=== PATIENT | female | born 1945 | race Caucasian/White ===

== ENCOUNTER → 2016-07-19 | Outpatient (CLI) | payer MEDICARE, OTHER | LOC: GMA 20:19 | PROVIDERS: ATTEND Nurse Practitioner Acute Care | DX: N39.0 Urinary tract infection, site not specified (principal) ==

== ENCOUNTER → 2016-09-15 | Outpatient (CLI) | payer MEDICARE, OTHER ==
--- NOTE | 2016-09-15 13:25 | US ---
History: Palpable nodule left breast 3-4 o'clock DATE OF SERVICE: 09/15/2016 Services provided: Full field digital diagnostic bilateral mammography. CAD, the images were reviewed with R2 computer aided detection. Targeted Limited left breast sonography. FINDINGS: Scattered glandular parenchymal pattern is near completely fatty involuted and compared with 2013 exam. No dominant mass, architectural distortion or clustered microcalcification. Directed ultrasound evaluation corresponding to the region of palpable change left breast demonstrates normal fibroglandular tissue. No sonographically suspicious finding. IMPRESSION: Benign exam. Region of clinical concern corresponds to a ridge of normal fibroglandular tissue. Recommendation: Routine annual mammography. Findings and recommendations were communicated to the patient by the technologist. BIRAD CATEGORY: 2 BENIGN Electronically signed by: Gilda Mo MD 09/15/2016 1:24 PM CDT
== END | disposition home or self-care (01) ==
LOC: MAMMO 12:21
PROVIDERS: ATTEND Nurse Practitioner Acute Care
DX: N63 Unspecified lump in breast (principal)

== ENCOUNTER 2016-10-23 09:33 | Emergency (ER) | payer MEDICARE, OTHER ==
--- NOTE | 2016-10-23 10:00 | ED.PDOC ---
History of Present Illness - General Chief Complaint: Syncope/Near Syncope Stated Complaint: passed out @ home Time Seen by Provider: 10/23/16 09:48 Source: patient, RN notes reviewed, Vital Signs reviewed, EMS Exam Limitations: no limitations - History of Present Illness Initial Comments: Patient reports that she got up this morning with a cramp in her foot. She stood up to stretch it out and she got a cramp in her inner L thigh. She bent down and rubbed firmly down her leg. She suddenly got dizzy & nauseated. Sat down on the floor and then passed out. Boyfriend reports she was sitting on the side of the bed when she passed out and fell. She was out for 3-4 minutes. When EMS arrived she was still on the floor and they had to pick her up and place her on the stretcher. She was still nauseated and was given Zofran. She was also noted to be hypotensive and bradycardic. BP improved to 104/62 after a 200cc NS bolus. She reports she currently feels fine. She does have a history of a. fib and was on flecinide but when she saw her gas truck driver in June of this year she was bradycardic to 40 and in a. flutter. Flecinide was stopped and no new medication started. She is on Coumadin. Timing/Duration: momentarily Improving Factors: nothing Worsening Factors: nothing Associated Symptoms: nausea/vomiting, syncope Allergies/Adverse Reactions: Allergies Cephalexin [From Keflex] Allergy (Severe, Verified 02/13/13 07:55) Codeine Allergy (Severe, Verified 02/13/13 07:55) Hydrocodone Allergy (Severe, Verified 02/13/13 07:55) Meperidine [From Demerol HCl] Allergy (Severe, Verified 02/13/13 07:55) Morphine Allergy (Severe, Verified 02/13/13 07:55) Penicillins Allergy (Severe, Verified 02/13/13 07:55) Sulfa Drugs Allergy (Severe, Verified 02/13/13 07:55) Home Medications: Ambulatory Orders Diazepam 5 mg PO DAILY 11/12/12 Enoxaparin Sodium [Lovenox] 100 mg SUBCU DAILY 11/12/12 Sertraline HCl [Zoloft] 100 mg PO DAILY 11/12/12 Simvastatin [Zocor] 40 mg PO HS 11/12/12 Warfarin Sodium 3 mg PO DAILY 11/12/12 Flecainide [Tambocor] 25 mg PO BID 02/12/13 Probiotic Product [Probiotic] 1 cap PO DAILY 02/12/13 Acetaminophen [Tylenol] 650 mg PO .Q4 PRN #0 tab 02/17/13 Enoxaparin Sodium [Lovenox] 100 mg SUBCU BID #0 syg 02/17/13 Tramadol HCl [Ultram] 50 mg PO .Q6 PRN #0 tab 02/17/13 Zolpidem Tartrate [Ambien] 5 mg PO HS PRN #0 tab 02/17/13 fentaNYL PATCH 25 MCG/HR [Duragesic] 25 mcg TD .Q72 #0 patch 02/17/13 Review of Systems - Review of Systems Constitutional: States: no symptoms reported. Denies: chills, diaphoresis, fever, malaise Respiratory: States: no symptoms reported. Denies: short of breath Cardiology: States: syncope. Denies: chest pain, edema, palpitations Gastrointestinal/Abdominal: States: nausea. Denies: abdominal pain, constipation, diarrhea, vomiting Musculoskeletal: States: muscle pain - L foot and thigh Skin: States: no symptoms reported Neurological: States: other - dizzy. Denies: numbness, paresthesia, tingling, weakness Hematologic/Lymphatic: States: easy bleeding - due to Coumadin All other Systems: No Change from Baseline Past Medical History (General) - Patient Medical History Hx Seizures: No Hx Stroke: No Hx Asthma: No Hx of COPD: No Hx Cardiac Disorders: Yes - A FIB Hx Congestive Heart Failure: No Hx Pacemaker: No Hx Hypertension: Yes Hx Diabetes: No Hx MRSA: No - Social History Hx Alcohol Use: No Hx Substance Use: No Hx Physical Abuse: No Hx Emotional Abuse: No Family Medical History - Family History Mother Family History: Unknown Living Status: Physical Exam - Physical Exam General Appearance: Alert, Comfortable, No apparent distress, Well Developed, Well Groomed, Well Hydrated, Well Nourished Eye Exam: bilateral normal Ears, Nose, Throat: hearing grossly normal, normal ENT inspection, normal pharynx Neck: non-tender, full range of motion, supple, normal inspection Respiratory: chest non-tender, lungs clear, normal breath sounds, no respiratory distress, no accessory muscle use Cardiovascular/Chest: no edema, no gallop, no JVD, no murmur, bradycardia Peripheral Pulses: dorsalis pedis,right: 2+, dorsalis pedis,left: 2+ Gastrointestinal/Abdominal: normal bowel sounds, non tender, soft, no organomegaly, no pulsatile mass Extremity: normal range of motion, no pedal edema, other - L medial, distal thigh is tender to palpation Neurologic: cloth reeler II-XII nml as tested, no motor/sensory deficits, alert, normal mood/affect, oriented x 3 Skin Exam: normal color, warm/dry Progress - Progress Progress: 10/23/16 10:58 Patient with bradycardia & hypotension, KCl of 3.0. O/W neg workup. Paged Principal Architect, Dr. Faheem Pablo @ [facility]. Awaiting call back from Dr. Post. 10/23/16 11:[address] Post. He does not feel her low heart rate was the cause of her syncopal episode. Feels it was vagal. Recommended a Holter Monitor and follow up with Dr. Pascual. 10/23/16 13:36 Potassium done. Will d/c home with follow up with PCP & Principal Architect - Results/Orders Results/Orders: Laboratory Tests 10/23/16 10/23/16 10/23/16 10:02 10:02 10:02 WBC 5.9 RBC 4.12 L Hgb 12.7 Hct 37.6 MCV 91.3 MCH 30.8 MCHC 33.6 RDW 13.1 Plt Count 196 MPV 7.2 L Absolute Neuts (auto) 3.20 Absolute Lymphs (auto) 1.60 Absolute Monos (auto) 0.80 Absolute Eos (auto) 0.30 Absolute Basos (auto) 0.10 Neutrophils % 53.6 Lymphocytes % 27.6 Monocytes % 13.1 H Eosinophils % 4.7 Basophils % 1.0 PT INR D-Dimer, Quantitative < 200 Sodium 138 Potassium 3.0 L Chloride 102 Carbon Dioxide 25 Anion Gap 14.0 BUN 22 H Creatinine 0.65 BUN/Creatinine Ratio 33.8 H Random Glucose 148 H Serum Osmolality 281.8 Calcium 8.6 Total Bilirubin 0.3 AST 22 ALT 18 Alkaline Phosphatase 36 L Creatine Kinase 101 CK-MB (CK-2) 3.8 CK-MB (CK-2) % Not Reportable Troponin I < 0.02 B-Natriuretic Peptide 9.4 Serum Total Protein 6.2 L Albumin 3.6 Globulin 2.6 Albumin/Globulin Ratio 1.4 10/23/16 10:10 WBC RBC Hgb Hct MCV MCH MCHC RDW Plt Count MPV Absolute Neuts (auto) Absolute Lymphs (auto) Absolute Monos (auto) Absolute Eos (auto) Absolute Basos (auto) Neutrophils % Lymphocytes % Monocytes % Eosinophils % Basophils % PT 24.7 H* INR 2.200 D-Dimer, Quantitative Sodium Potassium Chloride Carbon Dioxide Anion Gap BUN Creatinine BUN/Creatinine Ratio Random Glucose Serum Osmolality Calcium Total Bilirubin AST ALT Alkaline Phosphatase Creatine Kinase CK-MB (CK-2) CK-MB (CK-2) % Troponin I B-Natriuretic Peptide Serum Total Protein Albumin Globulin Albumin/Globulin Ratio - EKG/XRAY/CT EKG: Amado, Sinus, no ST T wave changes Comments: Rate 46 XRAY: chest - Normal per Rad CT Ordered: Yes - Head: no acute intracranial process per Rad Departure - Departure Clinical Impression: Vasovagal syncope, Sinus bradycardia on ECG Time of Disposition: 13:37 Disposition: Discharge to Home or Self Care Condition: Good Instructions: DI for Syncope in Adults (Fainting), DI for Bradycardia Diet: resume usual diet Activity: increase activity as tolerated Referrals: Piotr Solis MD [Primary Care Provider] - 1-2 Days Home Medications: Ambulatory Orders Diazepam 5 mg PO DAILY 11/12/12 Enoxaparin Sodium [Lovenox] 100 mg SUBCU DAILY 11/12/12 Sertraline HCl [Zoloft] 100 mg PO DAILY 11/12/12 Simvastatin [Zocor] 40 mg PO HS 11/12/12 Warfarin Sodium 3 mg PO DAILY 11/12/12 Flecainide [Tambocor] 25 mg PO BID 02/12/13 Probiotic Product [Probiotic] 1 cap PO DAILY 02/12/13 Acetaminophen [Tylenol] 650 mg PO .Q4 PRN #0 tab 02/17/13 Enoxaparin Sodium [Lovenox] 100 mg SUBCU BID #0 syg 02/17/13 Tramadol HCl [Ultram] 50 mg PO .Q6 PRN #0 tab 02/17/13 Zolpidem Tartrate [Ambien] 5 mg PO HS PRN #0 tab 02/17/13 fentaNYL PATCH 25 MCG/HR [Duragesic] 25 mcg TD .Q72 #0 patch 02/17/13 Additional Instructions: Hold HCTZ tomorrow and then just take 1/2 tab Follow up with Dr. Solis tomorrow to arrange for Holter Monitor Call Dr. Pablo in AM and arrange cardiology follow up for low heart rate.
[2016-10-23] MEDS ORDERED: KCL 40 MEQ/WATER FOR INJECTION 40 MEQ in PREMIX BAG 1 BAG IVPB ONE (10:11)
[2016-10-23] MEDS ORDERED: KCL 40 MEQ/WATER FOR INJECTION 100 ML IVPB ONE (10:40)
--- NOTE | 2016-10-23 10:41 | RAD ---
PROCEDURE: XR CHEST 1 VIEW HISTORY: Syncopal episode/bradycardia COMPARISON: 09/20/2008 TECHNIQUE: Single projection of the chest was done. FINDINGS: The lung marcus are well inflated . There are no discrete airspace infiltrates, pneumothoraces or pleural effusions. The pulmonary vascularity is normal. There is presence of a coronary artery stent. The cardiomediastinal silhouette is otherwise stable. IMPRESSION: There is no acute pleural-parenchymal process seen in the imaged lung marcus. Location of Interpretation: Teleradiology Electronically signed by: Bradley Sanchez MD 10/23/2016 10:40 AM CDT Workstation: [id number]
--- NOTE | 2016-10-23 10:49 | CT ---
PROCEDURE: Head HISTORY: syncopal episode Indication: Same as above Comparison: None Technique: CT of the head was done without intravenous contrast was done in the axial plane only This exam was performed according to our departmental dose-optimization program, which includes automated exposure control, adjustment of the mA and/or KV according to the patient's size and/or use of iterative reconstruction technique. FINDINGS: There is no intracranial hemorrhage, midline shift mass effect or acute focal infarct. There is prominence of the sylvian fissures and the cortical sulci reflecting age related volume loss and most pronounced in the bilateral frontal lobes. Intracranial vascular calcifications are seen. If clinical concern exists regarding an acute ischemic/vascular pathology being responsible for patient's symptomatology, an MRI of the brain is more sensitive than the current study, in ruling out such a possibility. There is good holguin/white matter differentiation. The ventricular system is normal. The mastoid air cells are unremarkable . The paranasal sinuses show changes of underlying chronic sinusitis . There is no visualization of acute fractures involving the calvarium or the skull base. IMPRESSION: There is no acute intracranial abnormality. Age related and chronic involutional changes are seen. Electronically signed by: Bradley Sanchez MD 10/23/2016 10:48 AM CDT Workstation: [id number]
[2016-10-23] MEDS ORDERED: SODIUM CHLORIDE 0.9% 1000ML 1,000 ML IVS ONE (11:23)
[2016-10-23 14:48] VITALS: BP 141/54; TEMP 96.5; O2SAT 94
== END 2016-10-23 14:00 | disposition home or self-care (01) ==
LOC: ER 09:33
DX: R55 Syncope and collapse (principal); R00.1 Bradycardia, unspecified; R11.0 Nausea; I95.9 Hypotension, unspecified; I48.91 Unspecified atrial fibrillation; I10 Essential (primary) hypertension; Z79.899 Other long term (current) drug therapy; Z79.01 Long term (current) use of anticoagulants; Z88.2 Allergy status to sulfonamides; Z88.0 Allergy status to penicillin; Z88.5 Allergy status to narcotic agent; Z88.1 Allergy status to other antibiotic agents
CPT/HCPCS: 36415; 70450; 71010; 80053; 82550; 82553; 83880; 84484; 85025; 85379; 85610; 93005; J3480; J7030

== ENCOUNTER 2016-12-09 17:24 | Emergency (ER) | payer MEDICARE, OTHER ==
[2016-12-09 17:49] VITALS: TEMP 98.3
--- NOTE | 2016-12-09 18:04 | ED.PDOC ---
History of Present Illness - General Chief Complaint: Abdominal Pain Stated Complaint: lower abd pain, left flank pain Time Seen by Provider: 12/09/16 18:04 Source: patient Exam Limitations: no limitations - History of Present Illness Initial Comments: Lolita Gregory 71 y/o female stated that slipped out of her ladder at home fell on her buttocks then had dull ache on her back and lower abdomen and 3 days later not getting better went to see her primary md was written antibiotics for possible diverticulitis and not getting better despite taking antibiotics also had watery diarrhea for 2 days accompanied by abdominal cramps.No blood in stool,no hematuria,no nausea vomiting,no fever able to eat but felt nauseous Timing/Duration: getting worse, intermittent, other - 6 days ago Severity: moderate Improving Factors: nothing Worsening Factors: nothing Associated Symptoms: other - see hpi Allergies/Adverse Reactions: Allergies Cephalexin [From Keflex] Allergy (Severe, Verified 02/13/13 07:55) Codeine Allergy (Severe, Verified 02/13/13 07:55) Hydrocodone Allergy (Severe, Verified 02/13/13 07:55) Meperidine [From Demerol HCl] Allergy (Severe, Verified 02/13/13 07:55) Morphine Allergy (Severe, Verified 02/13/13 07:55) Penicillins Allergy (Severe, Verified 02/13/13 07:55) Sulfa Drugs Allergy (Severe, Verified 02/13/13 07:55) Home Medications: Ambulatory Orders Diazepam 5 mg PO DAILY 11/12/12 Enoxaparin Sodium [Lovenox] 100 mg SUBCU DAILY 11/12/12 Sertraline HCl [Zoloft] 100 mg PO DAILY 11/12/12 Simvastatin [Zocor] 40 mg PO HS 11/12/12 Warfarin Sodium 3 mg PO DAILY 11/12/12 Flecainide [Tambocor] 25 mg PO BID 02/12/13 Probiotic Product [Probiotic] 1 cap PO DAILY 02/12/13 Acetaminophen [Tylenol] 650 mg PO .Q4 PRN #0 tab 02/17/13 Enoxaparin Sodium [Lovenox] 100 mg SUBCU BID #0 syg 02/17/13 Tramadol HCl [Ultram] 50 mg PO .Q6 PRN #0 tab 02/17/13 Zolpidem Tartrate [Ambien] 5 mg PO HS PRN #0 tab 02/17/13 fentaNYL PATCH 25 MCG/HR [Duragesic] 25 mcg TD .Q72 #0 patch 02/17/13 Review of Systems - Review of Systems Constitutional: States: no symptoms reported EENTM: States: no symptoms reported Respiratory: States: no symptoms reported Cardiology: States: no symptoms reported Gastrointestinal/Abdominal: States: see HPI Genitourinary: States: no symptoms reported Musculoskeletal: States: no symptoms reported Past Medical History (General) - Patient Medical History Hx Seizures: No Hx Stroke: No Hx Asthma: No Hx of COPD: No Hx Cardiac Disorders: Yes - A FIB Hx Congestive Heart Failure: No Hx Pacemaker: No Hx Hypertension: Yes Hx Diabetes: No Hx MRSA: No Surgical History: cholecystectomy, Hysterectomy, other - right knee,cataract - Vaccination History Hx Influenza Vaccination: Yes - 2016 Hx Pneumococcal Vaccination: Yes - Social History Hx Tobacco Use: No Hx Alcohol Use: No Hx Substance Use: No Hx Physical Abuse: No Hx Emotional Abuse: No Family Medical History - Family History Mother Family History: Unknown Living Status: Physical Exam - Physical Exam General Appearance: Alert, Anxious, No apparent distress Eye Exam: bilateral normal Ears, Nose, Throat: hearing grossly normal, normal ENT inspection, normal pharynx Neck: non-tender, full range of motion, supple Respiratory: chest non-tender, lungs clear Cardiovascular/Chest: normal peripheral pulses, regular rate, rhythm, no murmur Peripheral Pulses: radial,right: 1+, radial,left: 1+ Gastrointestinal/Abdominal: normal bowel sounds, soft, tenderness - lower abdomen no peritoneal signs Back Exam: normal inspection, no vertebral tenderness, CVA tenderness (L) Extremity: normal range of motion, non-tender, no pedal edema, no calf tenderness Neurologic: alert, normal mood/affect, oriented x 3 Progress - Progress Progress: 12/09/16 18:29 Vital Signs - 8 hr 12/09/16 17:30 Temperature 98.3 F Pulse Rate [ 58 L RIGHT BRACHIAL] Respiratory 20 Rate Blood Pressure 151/79 [RIGHT BRACHIAL ] O2 Sat by Pulse 94 L Oximetry 12/09/16 20:12 Laboratory Tests 12/09/16 12/09/16 12/09/16 18:21 18:21 18:21 WBC 5.9 RBC 3.92 L Hgb 12.1 Hct 35.0 L MCV 89.3 MCH 30.8 MCHC 34.6 RDW 12.7 Plt Count 209 MPV 7.1 L Absolute Neuts (auto) 3.20 Absolute Lymphs (auto) 1.40 Absolute Monos (auto) 0.80 Absolute Eos (auto) 0.30 Absolute Basos (auto) 0.10 Neutrophils % 55.4 Lymphocytes % 24.2 Monocytes % 14.0 H Eosinophils % 5.3 H Basophils % 1.1 PT 29.2 H* INR 2.610 Sodium 125 L Potassium 3.4 L Chloride 90 L Carbon Dioxide 25 Anion Gap 13.4 BUN 16 Creatinine 0.66 BUN/Creatinine Ratio 24.2 H Random Glucose 103 Serum Osmolality 252.9 L* Calcium 8.6 Total Bilirubin 1.0 AST 26 ALT 18 Alkaline Phosphatase 49 Serum Total Protein 6.5 Albumin 4.0 Globulin 2.5 Albumin/Globulin Ratio 1.6 Urine Color Urine Appearance Urine pH Ur Specific [place] Urine Protein Urine Glucose (UA) Urine Ketones Urine Blood Urine Nitrite Urine Bilirubin Urine Urobilinogen Ur Leukocyte Esterase Urine RBC Urine WBC Ur Epithelial Cells Urine Bacteria Urine Mucus 12/09/16 18:52 WBC RBC Hgb Hct MCV MCH MCHC RDW Plt Count MPV Absolute Neuts (auto) Absolute Lymphs (auto) Absolute Monos (auto) Absolute Eos (auto) Absolute Basos (auto) Neutrophils % Lymphocytes % Monocytes % Eosinophils % Basophils % PT INR Sodium Potassium Chloride Carbon Dioxide Anion Gap BUN Creatinine BUN/Creatinine Ratio Random Glucose Serum Osmolality Calcium Total Bilirubin AST ALT Alkaline Phosphatase Serum Total Protein Albumin Globulin Albumin/Globulin Ratio Urine Color Yellow Urine Appearance Clear Urine pH 6.0 Ur Specific [place] 1.020 Urine Protein Negative Urine Glucose (UA) Negative Urine Ketones Negative Urine Blood Negative Urine Nitrite Negative Urine Bilirubin Negative Urine Urobilinogen 0.2 Ur Leukocyte Esterase Trace H Urine RBC 0-1 Urine WBC 3-5 H Ur Epithelial Cells 3-5 Urine Bacteria Rare Urine Mucus Trace - EKG/XRAY/CT CT Ordered: Yes - abdomen/pelvis: L1 compression fracture,no other acute abnormalities/radiol Departure - Departure Clinical Impression: Chronic hyponatremia Abdominal pain Qualifiers: Abdominal location: lower abdomen, unspecified Qualified Code(s): R10.30 - Lower abdominal pain, unspecified Compression fracture of lumbar vertebra Qualifiers: Encounter type: initial encounter Lumbar vertebra fracture level: L1 Fracture type: closed Qualified Code(s): S32.010A - Wedge compression fracture of first lumbar vertebra, initial encounter for closed fracture Fall on and from ladder Qualifiers: Encounter type: initial encounter Qualified Code(s): W11.XXXA - Fall on and from ladder, initial encounter Time of Disposition: 22:02 Disposition: Discharge to Home or Self Care Condition: Fair Departure Forms: ED Discharge - Pt. Copy, Patient Portal Self Enrollment Instructions: DI for Abdominal Pain-Adult, DI for Vertebral Fracture, Vertebral Compression Fracture Referrals: Piotr Solis MD [Primary Care Provider] - 1-2 Weeks Home Medications: Ambulatory Orders Diazepam 5 mg PO DAILY 11/12/12 Enoxaparin Sodium [Lovenox] 100 mg SUBCU DAILY 11/12/12 Sertraline HCl [Zoloft] 100 mg PO DAILY 11/12/12 Simvastatin [Zocor] 40 mg PO HS 11/12/12 Warfarin Sodium 3 mg PO DAILY 11/12/12 Flecainide [Tambocor] 25 mg PO BID 02/12/13 Probiotic Product [Probiotic] 1 cap PO DAILY 02/12/13 Acetaminophen [Tylenol] 650 mg PO .Q4 PRN #0 tab 02/17/13 Enoxaparin Sodium [Lovenox] 100 mg SUBCU BID #0 syg 02/17/13 Tramadol HCl [Ultram] 50 mg PO .Q6 PRN #0 tab 02/17/13 Zolpidem Tartrate [Ambien] 5 mg PO HS PRN #0 tab 02/17/13 fentaNYL PATCH 25 MCG/HR [Duragesic] 25 mcg TD .Q72 #0 patch 02/17/13 Additional Instructions: Ambulate with walker as needed,Need to wear back brace in AM when moving around, Follow up with primary md 12/12/2016 call for appointment Continue with all home meds
[2016-12-09] MEDS ORDERED: SODIUM CHLORIDE 0.9% 500ML 500 ML IVS ONE (18:05)
[2016-12-09 18:41] VITALS: O2SAT 97
--- NOTE | 2016-12-09 19:14 | RAD ---
EXAM DESCRIPTION: Lumbar Spine 3 Views CLINICAL HISTORY: 71 years ,Female pain COMPARISON: None. TECHNIQUE: FINDINGS: There is straightening of the normal lordosis. Narrowing of the L3-4 L4-5 and L5-S1 disc interspaces. There is moderate compression at L1 which is age indeterminate but may be acute. Consider further evaluation with CT. IMPRESSION: Moderate compression at L1 which is age indeterminant. Acute fracture is not excluded. Multilevel degenerative change Electronically signed by: Miroslava Chisholm 12/09/2016 7:13 PM CDT
--- NOTE | 2016-12-09 19:16 | RAD ---
EXAM DESCRIPTION: Pelvis,2 or More Views CLINICAL HISTORY: 71 years Female pain COMPARISON: None. TECHNIQUE two views of the pelvis FINDINGS: No acute fractures or dislocations are identified. No osseous destructive lesions. There are degenerative changes in the lumbar spine. The SI joints and the symphysis appear intact. Proximal femora appear intact. No hip effusions are noted. IMPRESSION: No acute fracture is identified. CT or MRI could be obtained to better evaluate the hips if there is continued clinical concern. Electronically signed by: Miroslava Chisholm 12/09/2016 7:14 PM CDT
--- NOTE | 2016-12-09 21:26 | CT ---
EXAM DESCRIPTION: Abdomen/Pelvis w/Contrast CLINICAL HISTORY: 71 years Female pain COMPARISON: 02/07/2014 TECHNIQUE: Contiguous axial images obtained through the abdomen and pelvis following IV contrast. Reformatted images obtained. This exam was performed according to our department optimization program which includes automated exposure control, adjustment of the mA and/or kv according to patient size and/or use of iterative reconstruction technique. FINDINGS: Nodular focus in the right lung base which appears to be calcified on the coronal images. Liver appears unremarkable. Multiple low-attenuation foci in the spleen which appears stable as compared to the previous study. The pancreas is unremarkable. No adrenal masses. Nonobstructing renal calculus on the left. No evidence of delayed nephrogram or obstructive uropathy. The gallbladder is surgically absent. Small ventral hernia containing fat. No aneurysmal dilatation of the aorta. Unremarkable appendix. No bowel obstruction. There is diverticulosis without evidence of diverticulitis. There is moderate compression at L1 which is new as compared to the previous study. The fracture is age indeterminant but suspect chronic or subacute. No significant free fluid noted. IMPRESSION: Low-attenuation foci in the spleen which are stable as compared to the prior examination. Moderate compression at L1 which is age indeterminate. Suspect subacute or chronic injury Diverticulosis without evidence of diverticulitis. Electronically signed by: Miroslava Chisholm 12/09/2016 9:25 PM CDT
[2016-12-09 22:16] VITALS: BP 160/81
== END 2016-12-09 22:17 | disposition home or self-care (01) ==
LOC: ER 17:24
DX: R10.30 Lower abdominal pain, unspecified (principal); S32.010A Wedge compression fracture of first lumbar vertebra, initial encounter for closed fracture; E87.1 Hypo-osmolality and hyponatremia; I48.91 Unspecified atrial fibrillation; I10 Essential (primary) hypertension; Z88.6 Allergy status to analgesic agent; Z88.0 Allergy status to penicillin; Z88.2 Allergy status to sulfonamides; Z79.01 Long term (current) use of anticoagulants; Z79.899 Other long term (current) drug therapy; Z88.8 Allergy status to other drugs, medicaments and biological substances; W11.XXXA Fall on and from ladder, initial encounter; Y92.009 Unspecified place in unspecified non-institutional (private) residence as the place of occurrence of the external cause
CPT/HCPCS: 36415; 72100; 72190; 74177; 80053; 81001; 85025; 85610; 87324; 87449; J7040

== ENCOUNTER → 2017-04-04 | Outpatient (CLI) | payer MEDICARE, OTHER | END | disposition home or self-care (01) | LOC: GMA 20:15 | PROVIDERS: ATTEND Nurse Practitioner Family | DX: R31.21 Asymptomatic microscopic hematuria (principal) ==

== ENCOUNTER 2017-06-26 10:45 | Emergency (ER) | payer MEDICARE, OTHER ==
[2017-06-26 11:03] VITALS: TEMP 98.3
--- NOTE | 2017-06-26 11:13 | ED.PDOC ---
History of Present Illness - General Chief Complaint: Cardiovascular Problem Stated Complaint: arrythmia, "faintness" Time Seen by Provider: 06/26/17 11:07 Source: patient Exam Limitations: no limitations - History of Present Illness Initial Comments: Lolita Gregory 72 y/o female with history of A.fib on flecainide and coreg stated feels heart was "fluttering" and jaws felt weird as well as feeling of passing out satated was at home not doing any exertional activities.Denies chest pains ,N/V,SOB.Russian History Professor did not recommend defibrillation/cardiac ablation for her a.fib.Stated has jaw pains when her a.fib is acting up. Timing/Duration: 1-3 hours Severity: moderate Location: other - jaw Activities at Onset: rest Prior Chest Pain/Cardiac Workup: other - see hpi Worsening Factors: rest Nitro Today/Relief: no nitro taken today Aspirin Treatment Today: no aspirin today Associated Symptoms: other - see hpi Allergies/Adverse Reactions: Allergies Cephalexin [From Keflex] Allergy (Severe, Verified 02/13/13 07:55) Codeine Allergy (Severe, Verified 02/13/13 07:55) Hydrocodone Allergy (Severe, Verified 02/13/13 07:55) Meperidine [From Demerol HCl] Allergy (Severe, Verified 02/13/13 07:55) Morphine Allergy (Severe, Verified 02/13/13 07:55) Penicillins Allergy (Severe, Verified 02/13/13 07:55) Sulfa Drugs Allergy (Severe, Verified 02/13/13 07:55) Home Medications: Ambulatory Orders Diazepam 5 mg PO DAILY 11/12/12 Enoxaparin Sodium [Lovenox] 100 mg SUBCU DAILY 11/12/12 Sertraline HCl [Zoloft] 100 mg PO DAILY 11/12/12 Simvastatin [Zocor] 40 mg PO HS 11/12/12 Warfarin Sodium 3 mg PO DAILY 11/12/12 Flecainide [Tambocor] 25 mg PO BID 02/12/13 Probiotic Product [Probiotic] 1 cap PO DAILY 02/12/13 Acetaminophen [Tylenol] 650 mg PO .Q4 PRN #0 tab 02/17/13 Enoxaparin Sodium [Lovenox] 100 mg SUBCU BID #0 syg 02/17/13 Tramadol HCl [Ultram] 50 mg PO .Q6 PRN #0 tab 02/17/13 Zolpidem Tartrate [Ambien] 5 mg PO HS PRN #0 tab 02/17/13 fentaNYL PATCH 25 MCG/HR [Duragesic] 25 mcg TD .Q72 #0 patch 02/17/13 Review of Systems - Review of Systems Constitutional: States: no symptoms reported EENTM: States: no symptoms reported Respiratory: States: no symptoms reported Cardiology: States: see HPI Gastrointestinal/Abdominal: States: no symptoms reported Genitourinary: States: no symptoms reported All other Systems: Reviewed and Negative, No Change from Baseline Past Medical History (General) - Patient Medical History Hx Seizures: No Hx Stroke: No Hx Asthma: No Hx of COPD: No Hx Cardiac Disorders: Yes - A FIB Hx Congestive Heart Failure: No Hx Pacemaker: No Hx Hypertension: Yes Hx Diabetes: No Hx MRSA: No Surgical History: cholecystectomy, other - kne right,hysterectomy - Vaccination History Hx Influenza Vaccination: Yes - 2015 Hx Pneumococcal Vaccination: Yes - Social History Hx Tobacco Use: No Hx Alcohol Use: No Hx Substance Use: No Hx Physical Abuse: No Hx Emotional Abuse: No Family Medical History - Family History Mother Family History: Unknown Living Status: Physical Exam - Physical Exam General Appearance: Alert, Comfortable, No apparent distress Eyes, Ears, Nose, Throat Exam: normal ENT inspection Neck: full range of motion, supple Respiratory: chest non-tender, lungs clear, normal breath sounds, no respiratory distress Cardiovascular/Chest: normal peripheral pulses, regular rate, rhythm, no gallop , no murmur Peripheral Pulses: radial,right: 2+, radial,left: 2+ Gastrointestinal/Abdominal: non tender, soft Extremity: no pedal edema, no calf tenderness Neurologic: alert, oriented x 3 Skin Exam: normal color, warm/dry Progress - Progress Progress: 06/26/17 11:15 Vital Signs 06/26/17 10:49 Temperature 98.3 F Pulse Rate [ 70 apical] Respiratory 20 Rate Blood Pressure 129/64 [right brachial ] O2 Sat by Pulse 96 Oximetry - Results/Orders Results/Orders: 06/26/17 11:15 IV Care:Saline Lock per Protoc QSHIFT EKG STAT 06/26/17 11:16 EKG Assessment ONCE 06/26/17 11:20 CARDIAC PANEL,ER Stat HEPATIC FUNCTION PANEL Stat Laboratory Results - last 24 hr 06/26/17 11:20 WBC 8.0 RBC 4.02 L Hgb 12.9 Hct 36.6 MCV 91.1 MCH 32.0 H MCHC 35.1 RDW 12.8 Plt Count 178 MPV 8.1 Absolute Neuts (auto) 5.40 Absolute Lymphs (auto) 1.50 Absolute Monos (auto) 0.80 Absolute Eos (auto) 0.20 Absolute Basos (auto) 0.10 Neutrophils % 67.9 Lymphocytes % 18.5 L Monocytes % 10.7 H Eosinophils % 2.2 Basophils % 0.7 PT 26.0 H* INR 2.320 PTT (SP) 42.3 H Sodium 135 Potassium 3.1 L Chloride 102 Carbon Dioxide 28 Anion Gap 8.1 L BUN 13 Creatinine 0.98 BUN/Creatinine Ratio 13.3 Random Glucose 139 H Serum Osmolality 272.5 L Calcium 8.6 Magnesium 1.8 Total Bilirubin 1.1 H Direct Bilirubin 0.1 Indirect Bilirubin 1.0 H AST 46 H ALT 53 Alkaline Phosphatase 67 Creatine Kinase 64 Troponin I < 0.02 Serum Total Protein 6.7 Albumin 3.7 - EKG/XRAY/CT EKG: Sinus, no ST T wave changes Comments: HR-68 Departure - Departure Clinical Impression: Palpitations, History of atrial fibrillation, termite technician (current) use of anticoagulants, Jaw pain, non-TMJ Time of Disposition: 12:15 Disposition: Discharge to Home or Self Care Condition: Fair Departure Forms: ED Discharge - Pt. Copy, Patient Portal Self Enrollment Instructions: DI for Atypical Chest Pain Referrals: Piotr Solis MD [Primary Care Provider] - 1-2 Weeks Home Medications: Ambulatory Orders Diazepam 5 mg PO DAILY 11/12/12 Enoxaparin Sodium [Lovenox] 100 mg SUBCU DAILY 11/12/12 Sertraline HCl [Zoloft] 100 mg PO DAILY 11/12/12 Simvastatin [Zocor] 40 mg PO HS 11/12/12 Warfarin Sodium 3 mg PO DAILY 11/12/12 Flecainide [Tambocor] 25 mg PO BID 02/12/13 Probiotic Product [Probiotic] 1 cap PO DAILY 02/12/13 Acetaminophen [Tylenol] 650 mg PO .Q4 PRN #0 tab 02/17/13 Enoxaparin Sodium [Lovenox] 100 mg SUBCU BID #0 syg 02/17/13 Tramadol HCl [Ultram] 50 mg PO .Q6 PRN #0 tab 02/17/13 Zolpidem Tartrate [Ambien] 5 mg PO HS PRN #0 tab 02/17/13 fentaNYL PATCH 25 MCG/HR [Duragesic] 25 mcg TD .Q72 #0 patch 02/17/13 Additional Instructions: continue with current medications;Return to emergency room as needed
[2017-06-26 13:10] VITALS: BP 113/65; O2SAT 97
== END 2017-06-26 13:00 | disposition home or self-care (01) ==
LOC: ER 10:45
DX: R00.2 Palpitations (principal); I48.91 Unspecified atrial fibrillation; M26.609 Unspecified temporomandibular joint disorder, unspecified side; I10 Essential (primary) hypertension; Z79.01 Long term (current) use of anticoagulants

== ENCOUNTER → 2017-10-17 | Outpatient (CLI) | payer MEDICARE, OTHER ==
--- NOTE | 2017-10-18 13:47 | MAM ---
EXAM DESCRIPTION: 3D Screening BILATERAL : Digital Mammography. CLINICAL HISTORY: 72 years Female SCREENING . No complaints. Sister with breast cancer. Childbirth. Postmenopausal. HRT 5 or more years ago.. COMPARISON: 2-D digital screening bilateral study 07/20/2015.. Digital diagnostic left mammography and targeted left breast ultrasound on 09/15/2016. Reports from prior examinations also reviewed. TECHNIQUE: Bilateral CC and MLO projection full-field images, 3-D tomosynthesis digital mammographic technique. CAD not utilized. FINDINGS: The breast parenchymal density pattern is: Scattered areas of fibroglandular density. No skin thickening or nipple retraction. Bilateral axillary lymph nodes. Bilateral solitary microcalcifications.. No focal, stellate mass or density, focal asymmetry , and no suspicious microcalcifications bilaterally. Stable mammograms compared to prior study, taking into account differences in mammographic technique IMPRESSION: BI-RADS CATEGORY: 2 - BENIGN FINDINGS. FOLLOW UP: Routine digital bilateral screening, one year interval from September 2017. Written communication explaining the IMPRESSION and follow-up, will be mailed to the patient and referring health care provider. According to the [employer], yearly mammograms are recommended starting at age 40 and continuing as long as a woman is in good health. Any breast change noted on a breast self-exam should be reported promptly to the patient's healthcare provider. Breast MRI is recommended for women with an approximately 20-25% or greater lifetime risk of breast cancer, including women with a strong family history of breast or ovarian cancer and women who have been treated for Hodgkin's disease. A negative mammographic report should not delay tissue diagnosis in patients with significant clinical history or physical findings. Extremely dense breast tissue limits the sensitivity of digital mammography. Electronically signed by: Ananth Shearer MD 10/18/2017 1:46 PM CDT
== END ==
LOC: MAMMO 10:00
PROVIDERS: ATTEND Family Medicine
DX: Z12.31 Encounter for screening mammogram for malignant neoplasm of breast (principal)

== ENCOUNTER 2018-07-14 14:11 | Emergency (ER) | payer MEDICARE, OTHER ==
[2018-07-14] MEDS ORDERED: SODIUM CHLORIDE 0.9% 500ML 500 ML IVS ONE (14:52)
--- NOTE | 2018-07-14 14:52 | ED.PDOC ---
History of Present Illness - General Chief Complaint: Abdominal Pain Stated Complaint: L flank/abdominal discomfort Time Seen by Provider: 07/14/18 14:51 Information Source: patient Exam Limitations: no limitations - History of Present Illness Initial Comments: Lolita Gregory 73 y/o female stated that she had gradually worsening sharp shooting left flank pain radiating to left lower quadrant started Monday.No N/V/D,constipation.or hematuria/dysuria,no fever,chills. Abdominal Pain Onset Location: LLQ Pain Radiation: other - see hpi Quality: sharpness, stabbing Timing/Duration: days - 5 Improving Factors: nothing Worsening Factors: nothing Associated Symptoms: denies symptoms Review of Systems - Review of Systems Constitutional: States: no symptoms reported EENTM: States: no symptoms reported Respiratory: States: no symptoms reported Cardiology: States: no symptoms reported Gastrointestinal/Abdominal: States: see HPI Genitourinary: States: no symptoms reported Musculoskeletal: States: no symptoms reported Past Medical History (General) - Patient Medical History Hx Seizures: Yes Hx Stroke: No Hx Dementia: No Hx Asthma: No Hx of COPD: No Hx Cardiac Disorders: Yes - A FIB Hx Congestive Heart Failure: No Hx Pacemaker: No Hx Hypertension: Yes Hx Thyroid Disease: No Hx Diabetes: No Hx Gastroesophageal Reflux: No Hx Renal Disease: No Hx Cancer: No Hx of HIV: No Hx Hepatitis C: No Hx MRSA: No Surgical History: cholecystectomy, other - hysterectomy,knee-right,cataract - Vaccination History Hx Tetanus, Diphtheria Vaccination: Yes Hx Influenza Vaccination: Yes Hx Pneumococcal Vaccination: Yes - Social History Hx Tobacco Use: No Hx Alcohol Use: No Hx Substance Use: No Hx Substance Use Treatment: No Hx Depression: Yes - Takes Zoloft Hx Physical Abuse: No Hx Emotional Abuse: No Hx Suspected Abuse: No Family Medical History - Family History Mother Family History: Unknown Living Status: Hx Cardiac Disease: Yes - mom-mi Hx Family Cancer: Yes - lungs-dad Physical Exam - Physical Exam General Appearance: Alert, Comfortable, No apparent distress Eyes, Ears, Nose, Throat Exam: normal ENT inspection Neck: non-tender, full range of motion, supple, normal inspection Respiratory: lungs clear, normal breath sounds, no respiratory distress Cardiovascular/Chest: normal peripheral pulses, no murmur, irregularly irregular Peripheral Pulses: No deficit Gastrointestinal/Abdominal: non tender, soft Back Exam: normal inspection, no CVA tenderness, no vertebral tenderness Extremity: no pedal edema, no calf tenderness Neurologic: alert, oriented x 3 Skin Exam: normal color, warm/dry Progress - Progress Progress: 07/14/18 15:28 Vital Signs - 8 hr 07/14/18 14:22 Temperature 97.2 F L Pulse Rate [ 53 L Left Radial] Respiratory 20 Rate Blood Pressure 151/77 [Left Arm] O2 Sat by Pulse 98 Oximetry - Results/Orders Results/Orders: 07/14/18 16:03 URINALYSIS Stat Laboratory Results - last 24 hr 07/14/18 14:52 WBC 4.3 L RBC 4.49 Hgb 14.0 Hct 40.9 MCV 90.9 MCH 31.3 H MCHC 34.4 RDW 13.2 Plt Count 212 MPV 7.1 L Absolute Neuts (auto) 2.10 Absolute Lymphs (auto) 1.40 Absolute Monos (auto) 0.50 Absolute Eos (auto) 0.20 Absolute Basos (auto) 0.00 Neutrophils % 49.0 Lymphocytes % 33.2 Monocytes % 12.5 H Eosinophils % 4.8 Basophils % 0.5 PT 23.9 H INR 2.41 H PTT (SP) 40.6 H Sodium 130 L Potassium 3.4 L Chloride 94 L Carbon Dioxide 27 Anion Gap 12.4 BUN 14 Creatinine 0.58 L BUN/Creatinine Ratio 24.1 H Random Glucose 100 Serum Osmolality 261.4 L Calcium 8.7 Magnesium 1.7 L Total Bilirubin 0.7 Direct Bilirubin 0.1 Indirect Bilirubin 0.6 AST 23 ALT 19 Alkaline Phosphatase 51 Creatine Kinase 169 H CK-MB (CK-2) 3.8 CK-MB (CK-2) % 2.25 Troponin I < 0.02 Serum Total Protein 6.7 Albumin 3.9 Discuss alltest results with patient - EKG/XRAY/CT CT Ordered: Yes - 3mm left ureteral calculus-CT abd/p Departure - Departure Clinical Impression: Left ureteral calculus, Flank pain, History of atrial fibrillation, Current use of mcc anticoagulation Time of Disposition: 16:29 Disposition: Discharge to Home or Self Care Condition: Fair Departure Forms: ED Discharge - Pt. Copy, Patient Portal Self Enrollment Instructions: Kidney Stones in Adults, Renal Colic, Renal Colic (DC), How to Strain Your Urine Referrals: Piotr Solis MD [Primary Care Provider] - 1-2 Weeks Prescriptions: Tramadol HCl 50 mg PO Q4HR PRN #20 tab PRN Reason: Pain Tamsulosin [Flomax] 0.4 mg PO QD #7 cap Home Medications: Ambulatory Orders Diazepam 5 mg PO DAILY 11/12/12 Enoxaparin Sodium [Lovenox] 100 mg SUBCU DAILY 11/12/12 Sertraline HCl [Zoloft] 100 mg PO DAILY 11/12/12 Simvastatin [Zocor] 40 mg PO HS 11/12/12 Warfarin Sodium 3 mg PO DAILY 11/12/12 Flecainide [Tambocor] 25 mg PO BID 02/12/13 Probiotic Product [Probiotic] 1 cap PO DAILY 02/12/13 Acetaminophen [Tylenol] 650 mg PO .Q4 PRN #0 tab 02/17/13 Enoxaparin Sodium [Lovenox] 100 mg SUBCU BID #0 syg 02/17/13 Tramadol HCl [Ultram] 50 mg PO .Q6 PRN #0 tab 02/17/13 Zolpidem Tartrate [Ambien] 5 mg PO HS PRN #0 tab 02/17/13 fentaNYL PATCH 25 MCG/HR [Duragesic] 25 mcg TD .Q72 #0 patch 02/17/13 Tamsulosin [Flomax] 0.4 mg PO QD #7 cap 07/14/18 Tramadol HCl 50 mg PO Q4HR PRN #20 tab 07/14/18 Additional Instructions: Continue with all home medications;follow up with primary Md 16 Jul 2018 for recheck
--- NOTE | 2018-07-14 15:54 | CT ---
CT ABDOMEN AND PELVIS WITHOUT CONTRAST. 07/14/2018 CLINICAL HISTORY: Left flank and back pain. COMPARISON: CT abdomen and pelvis 12/09/2016. TECHNIQUE: Axial 2.[address] imaging of the abdomen and pelvis. Reformatted coronal and sagittal images reviewed. Examination was performed according to our departmental dose-optimization program, which includes automated exposure control, adjustment of the mA and/or kV according to patient size and/or use of iterative reconstruction technique. FINDINGS: LOWER THORAX: Clear lung bases. Heart is normal in size. ABDOMEN: LIVER/GALLBLADDER: Normal liver size, contour, and attenuation. Gallbladder has been resected. SPLEEN/PANCREAS: Normal spleen size. The spleen contains a few hypodensities up to 1.5 cm which are unchanged 2017 possibly representing complex cysts or hemangiomas. KIDNEYS/ADRENAL GLANDS: Normal adrenal glands. Normal right and left renal attenuation. There is a 3 mm nonobstructing left renal calculus. There is slight fullness of the right renal pelvis with no obstructing stone or mass. No perinephric edema. RETROPERITONEAL VESSELS/NODES: Moderate aortic atherosclerosis without aneurysm. Normal caliber inferior vena cava. No adenopathy. BOWEL: Normal stomach. The small bowel caliber is within normal limits. Normal appendix in the right lower quadrant. Normal colon caliber. Mild descending and significant sigmoid colon diverticulosis. No diverticulitis. MESENTERY/PERITONEUM: No adenopathy. No ascites. No free air. PELVIS: BLADDER: Normal bladder. GENITAL ORGANS: The uterus is surgically absent. PERITONEUM: No pelvic free fluid or adenopathy. BONES AND SOFT TISSUES: There is an old high-grade L1 superior endplate depression fracture. There is a Schmorl's node at L3 along the inferior endplate. There is degenerative disc space narrowing at L4-5. There is mild levoconvex lumbar curve. The bony pelvis appears intact. IMPRESSION: 1. Descending and sigmoid colon diverticulosis. No diverticulitis. 2. Stable splenic hypodensities may represent complex cysts or hemangiomas. 3. Nonobstructing 3 mm left renal pelvic stone. Slight fullness of the right renal pelvis with no visualized right collecting system stone. This could be due to a recently passed stone. Electronically signed by: Ciarra Glass DO 07/14/2018 3:52 PM CDT
[2018-07-14] MEDS ORDERED: TAMSULOSIN 0.4 MG CAP PO ONE (16:30)
[2018-07-14 17:18] VITALS: BP 138/72; TEMP 97; O2SAT 95
== END 2018-07-14 16:42 | disposition home or self-care (01) ==
LOC: ER 14:11
DX: N20.1 Calculus of ureter (principal); I48.91 Unspecified atrial fibrillation; K57.30 Diverticulosis of large intestine without perforation or abscess without bleeding; I10 Essential (primary) hypertension; F32.9 Major depressive disorder, single episode, unspecified; Z79.01 Long term (current) use of anticoagulants; Z79.899 Other long term (current) drug therapy; Z90.49 Acquired absence of other specified parts of digestive tract
CPT/HCPCS: 74176; 80048; 80076; 81001; 82550; 82553; 84484; 85025; 85610; 85730; J7040

== ENCOUNTER → 2018-10-18 | Outpatient (CLI) | payer MEDICARE, OTHER | LOC: SL 20:20 | PROVIDERS: ATTEND Family Medicine | DX: G47.33 Obstructive sleep apnea (adult) (pediatric) (principal); I10 Essential (primary) hypertension ==

== ENCOUNTER → 2019-02-14 | Outpatient (CLI) | payer MEDICARE, OTHER ==
--- NOTE | 2019-02-15 17:30 | MAM ---
EXAM DESCRIPTION: 3D Screening BILATERAL : Digital Mammography. CLINICAL HISTORY: 74 years Female SCREENING . No complaints. No personal history of breast cancer. Female half sibling with breast cancer unknown age. Menarche age 14. Childbirth. Postmenopausal. HRT 5 or more years prior.. Lifetime risk of developing breast cancer (Tyrer-Cuzick model)(%): 8.4. COMPARISON: Bilateral screening digital breast tomosynthesis 10/17/2017. . 2-D digital diagnostic bilateral mammography August 2016. TECHNIQUE: Bilateral CC and MLO projection full-field images, digital tomosynthesis mammographic technique. Bilateral digital 2-D full-field MLO images. CAD not available for tomosynthesis or 2-D images. FINDINGS: The breast parenchymal density pattern is: Almost entirely fatty. No skin thickening or nipple retraction. No new focal, stellate mass or density, focal asymmetry , and no suspicious microcalcifications bilaterally. Stable mammograms compared to prior study. Taking into account, differences in mammographic technique. IMPRESSION: BI-RADS CATEGORY: 1 - NEGATIVE FOLLOW UP: Routine digital bilateral screening, one year interval from January 2019. Written communication explaining the findings and follow-up, will be mailed to the patient and referring health care provider. According to the [employer], yearly mammograms are recommended starting at age 40 and continuing as long as a woman is in good health. Any breast change noted on a breast self-exam should be reported promptly to the patient's healthcare provider. Breast MRI is recommended for women with an approximately 20-25% or greater lifetime risk of breast cancer, including women with a strong family history of breast or ovarian cancer and women who have been treated for Hodgkin's disease. A negative mammographic report should not delay tissue diagnosis in patients with significant clinical history or physical findings. Extremely dense breast tissue limits the sensitivity of digital mammography. Electronically signed by: Ananth Shearer MD 02/15/2019 5:29 PM CDT
== END ==
LOC: MAMMO 08:19
PROVIDERS: ATTEND Family Medicine
DX: Z12.31 Encounter for screening mammogram for malignant neoplasm of breast (principal)

== ENCOUNTER 2019-03-29 18:01 | Emergency (ER) | payer MEDICARE, OTHER ==
[2019-03-29 18:21] VITALS: TEMP 98.4
[2019-03-29] MEDS ORDERED: PHENAZOPYRIDINE HCL 200 MG TAB PO ONE (18:23)
[2019-03-29] MEDS ORDERED: SODIUM CHLORIDE 0.9% 1000ML 500 ML IVS ONE (18:24)
--- NOTE | 2019-03-29 18:28 | ED.PDOC ---
History of Present Illness - General Chief Complaint: Problem Stated Complaint: painful urination with hesitency/frequency Time Seen by Provider: 03/29/19 18:10 Additional Information: Patient with chief complaint of urinary symptoms since yesterday. Patient indicates that she has painful voiding with small amounts and with increased frequency. Patient denies nausea, vomiting, fever, chills, abdominal pain. She indicates that she is relatively comfortable when she is not trying to go to the bathroom but she has frequent urgency to go to the bathroom and when she goes urination quinn. symptoms began yesterday and have gotten worse today. She indicates she has a slightly pink tinged urine today. Patient indicates she has a history of UTIs. Patient is otherwise asymptomatic and has no complaints. - History of Present Illness Allergies/Adverse Reactions: Allergies Cephalexin [From Keflex] Allergy (Severe, Verified 07/14/18 14:55) Codeine Allergy (Severe, Verified 07/14/18 14:55) Hydrocodone Allergy (Severe, Verified 07/14/18 14:55) Meperidine [From Demerol HCl] Allergy (Severe, Verified 07/14/18 14:55) Morphine Allergy (Severe, Verified 07/14/18 14:55) Penicillins Allergy (Severe, Verified 07/14/18 14:55) Sulfa Drugs Allergy (Severe, Verified 07/14/18 14:55) Home Medications: Ambulatory Orders Diazepam 5 mg PO DAILY 11/12/12 Enoxaparin Sodium [Lovenox] 100 mg SUBCU DAILY 11/12/12 Sertraline HCl [Zoloft] 100 mg PO DAILY 11/12/12 Simvastatin [Zocor] 40 mg PO HS 11/12/12 Warfarin Sodium 3 mg PO DAILY 11/12/12 Flecainide [Tambocor] 25 mg PO BID 02/12/13 Probiotic Product [Probiotic] 1 cap PO DAILY 02/12/13 Acetaminophen [Tylenol] 650 mg PO .Q4 PRN #0 tab 02/17/13 Enoxaparin Sodium [Lovenox] 100 mg SUBCU BID #0 syg 02/17/13 Tramadol HCl [Ultram] 50 mg PO .Q6 PRN #0 tab 02/17/13 Zolpidem Tartrate [Ambien] 5 mg PO HS PRN #0 tab 02/17/13 fentaNYL PATCH 25 MCG/HR [Duragesic] 25 mcg TD .Q72 #0 patch 02/17/13 Tamsulosin [Flomax] 0.4 mg PO QD #7 cap 07/14/18 Tramadol HCl 50 mg PO Q4HR PRN #20 tab 07/14/18 Ciprofloxacin HCl [Cipro] 500 mg PO BID #20 tab 03/29/19 Phenazopyridine HCl [Pyridium] 200 mg PO TID #6 tab 03/29/19 Review of Systems - Review of Systems Constitutional: States: no symptoms reported. Denies: chills, fever EENTM: States: no symptoms reported Respiratory: States: no symptoms reported. Denies: cough, short of breath Cardiology: States: no symptoms reported. Denies: chest pain, palpitations Gastrointestinal/Abdominal: States: no symptoms reported. Denies: abdominal pain, nausea, vomiting Genitourinary: States: see HPI Musculoskeletal: States: no symptoms reported Skin: States: no symptoms reported. Denies: rash Neurological: States: no symptoms reported Endocrine: States: no symptoms reported All other Systems: Reviewed and Negative Past Medical History (General) - Patient Medical History Hx Seizures: Yes Hx Stroke: No Hx Dementia: No Hx Asthma: No Hx of COPD: No Hx Cardiac Disorders: Yes - A fib Hx Congestive Heart Failure: No Hx Pacemaker: No Hx Hypertension: No Hx Thyroid Disease: No Hx Diabetes: No Hx Gastroesophageal Reflux: No Hx Renal Disease: No Hx Cancer: No Hx of HIV: No Hx Hepatitis C: No Hx MRSA: No Surgical History: cholecystectomy, Hysterectomy, other - Vaccination History Hx Tetanus, Diphtheria Vaccination: No Hx Influenza Vaccination: Yes Hx Pneumococcal Vaccination: Yes - Social History Hx Tobacco Use: No Hx Alcohol Use: Yes - Occasional Hx Substance Use: No Hx Substance Use Treatment: No Hx Depression: No Hx Physical Abuse: No Hx Emotional Abuse: No Hx Suspected Abuse: No - Female History Patient is a Female of Child Bearing Age (10 -59 yrs old): No Patient : No Family Medical History - Family History Mother Family History: Unknown Living Status: Hx Cardiac Disease: Yes - mom-mi Hx Family Cancer: Yes - lungs-dad Physical Exam - Physical Exam General Appearance: Alert, Comfortable, No apparent distress Eyes, Ears, Nose, Throat Exam: normal ENT inspection, pharynx normal Neck: supple, normal inspection Cardiovascular/Respiratory: regular rate, rhythm, no M/R/G, normal peripheral pulses, no JVD, normal breath sounds, no respiratory distress Gastrointestinal/Abdominal: normal bowel sounds, soft, no organomegaly, tenderness - mild suprapubic Back Exam: normal inspection, no CVA tenderness Extremity: normal range of motion, non-tender, normal inspection 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 A Shantz UA is consistent with UTI, her CBC and chemistry panel are unremarkable. Patient offered observation admission for IV antibiotics and symptom control but she declines stating that she feels well enough to go home and be followed up by her physician as an outpatient. Levaquin given in the ED and will DC home with Cipro. Vital signs stable, patient NAD and looks clinically well, and I believe is safe for discharge with outpatient follow-up. Follow-up instructions, discharge instructions and return to ED precautions discussed with patient. Patient voices understanding and willingness to comply with instructions. All laboratory results have been discussed with the patient, and all questions answered. Patient is happy with plan. Departure - Departure Clinical Impression: Urinary tract infection Qualifiers: Hematuria presence: with hematuria Time of Disposition: 19:54 Disposition: Discharge to Home or Self Care Condition: Good Departure Forms: ED Discharge - Pt. Copy, Patient Portal Self Enrollment Instructions: DI for Urinary Tract Infection (UTI) Referrals: Piotr Solis MD [Primary Care Provider] - 1-5 Days Prescriptions: Ciprofloxacin HCl [Cipro] 500 mg PO BID #20 tab Phenazopyridine HCl [Pyridium] 200 mg PO TID #6 tab Home Medications: Ambulatory Orders Diazepam 5 mg PO DAILY 11/12/12 Enoxaparin Sodium [Lovenox] 100 mg SUBCU DAILY 11/12/12 Sertraline HCl [Zoloft] 100 mg PO DAILY 11/12/12 Simvastatin [Zocor] 40 mg PO HS 11/12/12 Warfarin Sodium 3 mg PO DAILY 11/12/12 Flecainide [Tambocor] 25 mg PO BID 02/12/13 Probiotic Product [Probiotic] 1 cap PO DAILY 10/15/13 Acetaminophen [Tylenol] 650 mg PO .Q4 PRN #0 tab 02/17/13 Enoxaparin Sodium [Lovenox] 100 mg SUBCU BID #0 syg 02/17/13 Tramadol HCl [Ultram] 50 mg PO .Q6 PRN #0 tab 02/17/13 Zolpidem Tartrate [Ambien] 5 mg PO HS PRN #0 tab 02/17/13 fentaNYL PATCH 25 MCG/HR [Duragesic] 25 mcg TD .Q72 #0 patch 02/17/13 Tamsulosin [Flomax] 0.4 mg PO QD #7 cap 07/14/18 Tramadol HCl 50 mg PO Q4HR PRN #20 tab 07/14/18 Ciprofloxacin HCl [Cipro] 500 mg PO BID #20 tab 03/29/19 Phenazopyridine HCl [Pyridium] 200 mg PO TID #6 tab 03/29/19
[2019-03-29] MEDS ORDERED: levoFLOXacin 500 MG TAB PO ONE (19:48)
[2019-03-29 20:06] VITALS: BP 123/45; O2SAT 96
== END 2019-03-29 20:17 | disposition home or self-care (01) ==
LOC: ER 18:01
DX: N39.0 Urinary tract infection, site not specified (principal); R31.9 Hematuria, unspecified; I48.91 Unspecified atrial fibrillation; R56.9 Unspecified convulsions; Z79.899 Other long term (current) drug therapy; Z79.01 Long term (current) use of anticoagulants; Z88.8 Allergy status to other drugs, medicaments and biological substances; Z88.5 Allergy status to narcotic agent; Z88.0 Allergy status to penicillin; Z88.2 Allergy status to sulfonamides; Z87.440 Personal history of urinary (tract) infections
CPT/HCPCS: 36415; 80048; 81001; 83880; 85025; 87086; J7030

== ENCOUNTER → 2019-04-08 | Outpatient (CLI) | payer MEDICARE, OTHER ==
--- NOTE | 2019-04-08 12:54 | RAD ---
EXAM DESCRIPTION: Knee,Left Complete CLINICAL HISTORY: 74 years Female, PAIN IN LEFT KNEE COMPARISON: None. Findings: Four views/radiographs Lateral patellar subluxation. Shallow femoral trochlea. Tricompartmental osteophytes. Mild lateral compartment narrowing. No acute fracture or dislocation identified. No significant joint effusion. IMPRESSION: Left knee osteoarthritis. No acute fracture or dislocation identified. Electronically signed by: Ricki Castillo MD 04/08/2019 12:52 PM [employer]
--- NOTE | 2019-04-08 12:57 | RAD ---
EXAM DESCRIPTION: Pelvis CLINICAL HISTORY: PAIN IN LEFT HIP COMPARISON: December 09, 2016 IMPRESSION: Single AP supine view of the pelvis shows no acute fracture, focal bone destruction, or joint dislocation. Mild joint space narrowing and sclerotic changes to the superior lateral acetabulum are seen bilaterally consistent with mild osteoarthritic changes. Moderate to severe disc degenerative changes of the lower lumbar spine are again seen. If pain persists, further evaluation with CT or MRI imaging may be useful. Electronically signed by: Stanley Jerez MD 04/08/2019 12:55 PM [facility]
== END ==
LOC: RAD 10:37
PROVIDERS: ATTEND Orthopaedic Surgery
DX: M16.0 Bilateral primary osteoarthritis of hip (principal); M51.36 Other intervertebral disc degeneration, lumbar region; M17.12 Unilateral primary osteoarthritis, left knee

== ENCOUNTER → 2019-10-30 | Outpatient (CLI) | payer MEDICARE, OTHER | LOC: GMAJ 14:34 | PROVIDERS: ATTEND Family Medicine | DX: I10 Essential (primary) hypertension (principal); R39.15 Urgency of urination; Z79.01 Long term (current) use of anticoagulants ==

== ENCOUNTER → 2020-01-21 | Outpatient (CLI) | payer MEDICARE, OTHER | LOC: GMAJ 14:24 | PROVIDERS: ATTEND Family Medicine | DX: N30.00 Acute cystitis without hematuria (principal) ==

== ENCOUNTER → 2020-03-04 | Outpatient (CLI) | payer MEDICARE, OTHER ==
--- NOTE | 2020-03-09 16:44 | MAM ---
EXAM DESCRIPTION: 3D Screening BILATERAL : Digital Mammography. CLINICAL HISTORY: 75 years Female SCREENING. No complaints. Sister with breast cancer age 84. Menarche age 14. Childbirth age 20. Menopause age with hysterectomy age 42. HRT 5 or more years ago. Lifetime risk of developing breast cancer (Tyrer-Cuzick model)(%): 7.9. COMPARISON: Bilateral screening digital breast tomosynthesis January 2019 and January 2018. No prior reports available. TECHNIQUE: Bilateral CC and MLO projection full-field images, digital tomosynthesis mammographic technique. Bilateral digital 2-D full-field MLO images. CAD available for 2-D images. FINDINGS: The breast parenchymal density pattern is: Scattered areas of fibroglandular density. No skin thickening or nipple retraction. Solitary microcalcifications. Left axillary lymph node. No new focal, stellate mass or density, focal asymmetry , and no suspicious microcalcifications bilaterally. Stable mammograms compared to prior study. IMPRESSION: Benign exam. BIRAD CATEGORY: 2 BENIGN FINDINGS. RECOMMENDATIONS: FOLLOW UP: Routine digital bilateral mammographic screening, one year interval from March 2020. Written communication explaining the IMPRESSION and follow-up, will be mailed to the patient and referring health care provider. According to the [employer], yearly mammograms are recommended starting at age 40 and continuing as long as a woman is in good health. Any breast change noted on a breast self-exam should be reported promptly to the patient's healthcare provider. Breast MRI is recommended for women with an approximately 20-25% or greater lifetime risk of breast cancer, including women with a strong family history of breast or ovarian cancer and women who have been treated for Hodgkin's disease. A negative mammographic report should not delay tissue diagnosis in patients with significant clinical history or physical findings. Extremely dense breast tissue limits the sensitivity of digital mammography. Electronically signed by: Ananth Shearer MD 03/09/2020 4:42 PM [employer]
== END ==
LOC: MAMMO 14:09
PROVIDERS: ATTEND Family Medicine
DX: Z12.31 Encounter for screening mammogram for malignant neoplasm of breast (principal)